=== PATIENT | female | born 1990 | race Caucasian/White ===

== ENCOUNTER 2016-11-18 20:04 | Emergency (ER) | payer BC, OTHER ==
[~2016-11-18] VITALS: Ht 165.1 cm; Wt 63.5 kg
[2016-11-18] MEDS ORDERED: ONDANSETRON PF 4 MG/2 ML VIAL. IV ONE (20:45)
[2016-11-18] MEDS ORDERED: DIPHTH,PERTUSS(ACELL),TET TOX 0.5 ML DISP.SYRIN. VAX IM ONE (20:45)
[2016-11-18] MEDS ORDERED: KETOROLAC 15 MG/ML VIAL. IV ONE (20:45)
[2016-11-18] MEDS ORDERED: KETOROLAC 60 MG/2 ML INJ. IM ONE (21:30)
[2016-11-18] MEDS ORDERED: ONDANSETRON ODT 4 MG TAB.RAPDIS. PO ONE (21:30)
--- NOTE | 2016-11-18 21:59 | RAD ---
CT Head W/O Contrast: History: FALL FROM STANDING NO LOC ABRASIONS TO FACE NOSE PAIN NO PREV/CONTRAST UNABLE TO REMOVE EARRINGS Comparison: none Axial images were obtained without contrast. The nevarez and white matter appears normal and symmetrical for the patients age. There is no mass effect, extraaxial fluid collections or hydrocephalus. There is no gross bleed. There is no focal loss of nevarez-white matter distinction to suggest acute ischemia, i.e. stroke. Impression: No acute findings. End impression CT maxillofacial without contrast History: sinus infection Axial helical images of the face were obtained without contrast. Axial, sagittal and coronal reconstruction was performed. The nasal septum is mildly deviated to the right. The ostiomeatal complexes are narrow but patent. The paranasal sinuses are clear. There is multiple displaced fractures through the nasal ala bilaterally. The orbits appear normal. Impression: Acute bilateral nasal bone fractures. End impression CT C-Spine without contrast: Clinical History: FALL FROM STANDING NO LOC ABRASIONS TO FACE NOSE PAIN NO PREV/CONTRAST UNABLE TO REMOVE EARRINGS Technique: Axial helical images of the cervical spine were obtained without contrast, axial coronal and sagittal reconstruction was performed. Findings: There is no loss of vertebral body stature. There is no prevertebral soft tissue swelling. The vertebral bodies are well aligned. The C1-C2 relationship is normal. The visualized osseous structures appear normal. There is straightening of the normal cervical lordosis which can be positional or can be secondary to muscle spasm. Evaluation of the central canal is limited without contrast. Impression: No acute findings. Clinical correlation suggested. PQRS Compliance Statement: One or more of the following individualized dose reduction techniques were utilized for this examination: 1. Automated exposure control 2. Adjustment of the mA and/or kV according to patient size 3. Use of iterative reconstruction technique Electronically signed by: Cade Butler III, MD (11/18/2016 9:56 PM) [facility]
[2016-11-18] MEDS ORDERED: IBUP-1007 PO (22:53)
[2016-11-18] MEDS ORDERED: HYDR-971 PO (22:53)
[2016-11-18] MEDS ORDERED: CEPH-264 PO (22:53)
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
[2016-11-18 23:31] VITALS: BP 135/74
== END 2016-11-18 23:32 | disposition home or self-care (01) ==
LOC: ER 20:04
DX: S02.2XXA Fracture of nasal bones, initial encounter for closed fracture (principal); S00.81XA Abrasion of other part of head, initial encounter; S09.90XA Unspecified injury of head, initial encounter; F10.129 Alcohol abuse with intoxication, unspecified; W01.198A Fall on same level from slipping, tripping and stumbling with subsequent striking against other object, initial encounter; Y93.39 Activity, other involving climbing, rappelling and jumping off; Y92.89 Other specified places as the place of occurrence of the external cause; Y99.8 Other external cause status
CPT/HCPCS: 70450; 70486; 72125; 81025; 90471; 90715; 96372; 99284; J1885; Q0162

== ENCOUNTER 2017-01-07 08:00 | Emergency (ER) | payer OTHER ==
[~2017-01-07] VITALS: Ht 160 cm; Wt 63.5 kg
[~2017-01-07 08:00] MED LIST: CEPH-264 PO; HYDR-971 PO; IBUP-1007 PO
[2017-01-07 08:27] LABS: BILIRUBIN,URINE NEGATIVE (NEG); GLUCOSE,URINE 100 mg/dL (NEG); NITRITE,URINE NEGATIVE (NEG); PROTEIN,URINE 100 mg/dL (NEG-TRACE)
[2017-01-07 08:29] LABS: NEG OBC UR NEG; POS OBC UR POS
[2017-01-07 08:45] LABS: BASO % 0 % (0-3); EOS % 0 % (0-3); HEMATOCRIT 36.7 % (36.0-47.0); HEMOGLOBIN 12.3 g/dL (12.0-15.5); LYMPH # 1.5 x10^3/uL (1.0-4.8); LYMPH % 15 % (24-48); MEAN CORPUSCULAR HEMOGLOBIN 29 pg (25-35); MEAN CORPUSCULAR HGB CONC 34 g/dL (31-37); MEAN CORPUSCULAR VOLUME 87 fL (79-100); MONO % 8 % (0-9); NEUT % 77 % (31-73); PLATELET COUNT 292 x10^3/uL (140-400); WHITE BLOOD COUNT 9.9 x10^3/uL (4.0-11.0)
[2017-01-07 08:54] LABS: CALCIUM 9.2 mg/dL (8.5-10.1); CREATININE 0.7 mg/dL (0.6-1.0); GFR 101.1; POTASSIUM 3.1 mmol/L (3.5-5.1)
[2017-01-07 08:54] LABS: RBC,URINE 0 /HPF (0-2)
[2017-01-07 08:55] LABS: BACTERIA,URINE FEW /HPF (0-FEW); SQUAMOUS EPITHELIAL CELL,UR MANY /LPF
[2017-01-07 09:01] LABS: ALBUMIN 4.4 g/dL (3.4-5.0); TOTAL BILIRUBIN 0.4 mg/dL (0.2-1.0); TOTAL PROTEIN 8.6 g/dL (6.4-8.2)
--- NOTE | 2017-01-07 09:26 | ED.ADGEN ---
Past Medical History Past Medical History: No Pertinent History Past Surgical History: Other Additional Past Surgical Histo: WISDOM TEETH, BLADDER Alcohol Use: Occasionally Drug Use: None Adult General Chief Complaint Chief Complaint: NAUSEA/VOMITING/DIARRHA HPI HPI Patient is a 26 year old woman, with no significant past no history, who presents to the emergency department with complaint of nausea, vomiting, and epigastric abdominal pain for the past 3 days. 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 She states that she did have a small bowel yesterday, but denies any diarrhea, denies any blood in her emesis or stool. Denies any urinary complaints. She states that she's been vomiting "nonstop", states that it is food and fluid, and also bringing up mucus. No coughing, states that she is having chest pain after multiple doses of vomiting. Denies any weakness, numbness or tingling, any swelling extremities, any rashes, any headache, any body aches. States that she is experiencing subjective fevers and chills, has not taken any antibiotics, and is afebrile upon arrival to the emergency department. States she tried to take Pepto-Bismol this morning but vomited that back up. Review of Systems Review of Systems Constitutional: Denies fever or chills. [] Eyes: Denies change in visual acuity. [] HENT: Denies nasal congestion or sore throat. [] Respiratory: Denies cough or shortness of breath. [] Cardiovascular: Denies chest pain or edema. [] GI: Epigastric abdominal pain, nausea, vomiting, no bloody stools or diarrhea. : Denies dysuria. [] Musculoskeletal: Denies back pain or joint pain. [] Integument: Denies rash. [] Neurologic: Denies headache, focal weakness or sensory changes. [] Endocrine: Denies polyuria or polydipsia. [] Lymphatic: Denies swollen glands. [] Psychiatric: Denies depression or anxiety. [] Current Medications Current Medications Current Medications Medications (Trade) Dose Ordered Sig/Chen Start Time Stop Time Status Last Admin Dose Admin Ketorolac Tromethamine (Toradol) 10 mg 1X ONCE 01/07/17 09:45 01/07/17 09:46 DC 01/07/17 09:40 10 MG Multi-Ingredient Mouthwash/Gargle (Gi Cocktail Single Dose) 15 ml 1X ONCE 01/07/17 09:45 01/07/17 09:46 DC 01/07/17 09:39 15 ML Ondansetron HCl (Zofran) 4 mg 1X ONCE 01/07/17 10:30 01/07/17 10:31 DC 01/07/17 10:03 4 MG Potassium Chloride (KCl Oral Soln) 40 meq 1X ONCE 01/07/17 09:45 01/07/17 09:46 DC 01/07/17 09:39 40 MEQ Sodium Chloride 1,000 ml @ 1,000 mls/hr 1X ONCE 01/07/17 10:45 01/07/17 11:44 DC 01/07/17 10:56 1,000 MLS/HR Allergies Allergies Allergies Coded Allergies Type Severity Reaction Last Updated Verified No Known Drug Allergies 06/01/14 No Physical Exam Physical Exam Constitutional: Well developed, well nourished, no acute distress, non-toxic appearance. [] HENT: Normocephalic, atraumatic, bilateral external ears normal, oropharynx moist, no oral exudates, nose normal. [] Eyes: PERRLA, EOMI, conjunctiva normal, no discharge. [] Neck: Normal range of motion, no tenderness, supple, no stridor. [] Cardiovascular:Heart rate regular rhythm, no murmur, S1, S2, no rubs or gallops. [] Lungs & Thorax: Bilateral breath sounds clear to auscultation, no wheezing, rhonchi, rales. No chest wall crepitus or tenderness. [] Abdomen: Bowel sounds normal, soft, mild tenderness to palpation in the epigastric region, and throughout the abdomen, no rebound, rigidity, no guarding , no masses, no pulsatile masses. [] Skin: Warm, dry, no erythema, no rash. [] Back: No tenderness, no CVA tenderness. [] Extremities: No tenderness, no cyanosis, no clubbing, ROM intact, no edema. [] Neurologic: Alert and oriented X 3, normal motor function, normal sensory function, no focal deficits noted. [] Psychologic: Affect normal, judgement normal, mood normal. [] Current Patient Data Vital Signs Vital Signs Date Time Temp Pulse Resp B/P (MAP) Pulse Ox O2 Delivery O2 Flow Rate FiO2 01/07/17 11:40 95 150/90 (110) 96 Room Air 01/07/17 08:05 98.9 20 98.9 Lab Values Laboratory Tests Test 01/07/17 08:11 01/07/17 08:12 01/07/17 08:30 Urine Collection Type Unknown Urine Color Yellow Urine Clarity Clear Urine pH 8.0 Urine Specific [place] >=1.030 Urine Protein 100 mg/dL (NEG-TRACE) Urine Glucose (UA) 100 mg/dL (NEG) Urine Ketones (Stick) 15 mg/dL (NEG) Urine Blood Negative (NEG) Urine Nitrite Negative (NEG) Urine Bilirubin Negative (NEG) Urine Urobilinogen Dipstick 1.0 mg/dL (0.2 mg/dL) Urine Leukocyte Esterase Small (NEG) Urine RBC 0 /HPF (0-2) Urine WBC 1-4 /HPF (0-4) Urine Squamous Epithelial Cells Many /LPF Urine Bacteria Few /HPF (0-FEW) Urine Mucus Marked /LPF Urine Test Negative (NEG) POC Urine HCG, Qualitative Hcg negative (Negative) White Blood Count 9.9 x10^3/uL (4.0-11.0) Red Blood Count 4.20 x10^6/uL (3.50-5.40) Hemoglobin 12.3 g/dL (12.0-15.5) Hematocrit 36.7 % (36.0-47.0) Mean Corpuscular Volume 87 fL (79-100) Mean Corpuscular Hemoglobin 29 pg (25-35) Mean Corpuscular Hemoglobin Concent 34 g/dL (31-37) Red Cell Distribution Width 15.0 % (11.5-14.5) H Platelet Count 292 x10^3/uL (140-400) Neutrophils (%) (Auto) 77 % (31-73) H Lymphocytes (%) (Auto) 15 % (24-48) L Monocytes (%) (Auto) 8 % (0-9) Eosinophils (%) (Auto) 0 % (0-3) Basophils (%) (Auto) 0 % (0-3) Neutrophils # (Auto) 7.6 x10^3uL (1.8-7.7) Lymphocytes # (Auto) 1.5 x10^3/uL (1.0-4.8) Monocytes # (Auto) 0.8 x10^3/uL (0.0-1.1) Eosinophils # (Auto) 0.0 x10^3/uL (0.0-0.7) Basophils # (Auto) 0.0 x10^3/uL (0.0-0.2) Sodium Level 137 mmol/L (136-145) Potassium Level 3.1 mmol/L (3.5-5.1) L Chloride Level 102 mmol/L (98-107) Carbon Dioxide Level 25 mmol/L (21-32) Anion Gap 10 (6-14) Blood Urea Nitrogen 17 mg/dL (7-20) Creatinine 0.7 mg/dL (0.6-1.0) Estimated GFR (Cockcroft-Gault) 101.1 BUN/Creatinine Ratio 24 (6-20) H Glucose Level 115 mg/dL (70-99) H Calcium Level 9.2 mg/dL (8.5-10.1) Total Bilirubin 0.4 mg/dL (0.2-1.0) Aspartate Amino Transferase (AST) 33 U/L (15-37) Alanine Aminotransferase (ALT) 52 U/L (14-59) Alkaline Phosphatase 44 U/L (46-116) L Total Protein 8.6 g/dL (6.4-8.2) H Albumin 4.4 g/dL (3.4-5.0) Albumin/Globulin Ratio 1.0 (1.0-1.7) Lipase 109 U/L (73-393) Laboratory Tests 01/07/17 08:30 Laboratory Tests 01/07/17 08:30 EKG EKG ECG: Rhythm strip: Heart rate 76 bpm, no ectopy, as interpreted by me.[] Radiology/Procedures Radiology/Procedures [][facility] [address] [place] [address] IMAGING REPORT Signed PATIENT: WHIT RUSSO ACCOUNT: [id number] : 1990 LOCATION: ER AGE: 26 SEX: F EXAM STATUS: REG ER ORD. PHYSICIAN: FANTA REDMAN DO REASON: abd pain/n/v PROCEDURE: ACUTE ABDOMEN SERIES ACUTE ABDOMEN SERIES History: abd pain/n/v x2 days. Comparison: None. Findings: Frontal chest and supine and upright views of the abdomen. Cardiomediastinal silhouette is normal. There is no pleural effusion or pneumothorax. The lungs are clear. No pneumoperitoneum is identified. No air-fluid levels on the upright image. No dilated loops of bowel are seen. There is minimal bowel gas decreasing sensitivity. No obvious organomegaly. Tiny flecks of hyperdensity are seen in the pelvis and in the right lower abdomen, presumably in bowel. Correlate to recent ingestions such as Pepto-Bismol. IMPRESSION: 1. No acute cardiopulmonary process. 2. Nonobstructive bowel gas pattern. DICTATED and SIGNED BY: IKE BOLDEN MD DATE: 01/07/17 0952 CC: FANTA REDMAN DO; ROCK MIGUEL DO ~ Course & Med Decision Making Course & Med Decision Making Pertinent Labs and Imaging studies reviewed. (See chart for details) Patient noted to have a potassium of 3.1, with a small amount ketones in the urine. Patient received antiemetics, analgesia with Toradol, IV fluids. She had no further emesis in the ED. Upon reevaluation, patient states that she is feeling much better at this time, laboratory studies reviewed, she did tolerate oral potassium, and a GI cocktail. Acute on a series not reveal a concerning findings, patient's examination history is consistent with a likely viral syndrome. Did discuss this with patient, importance of pushing fluids, use of Bentyl and Zofran. 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 Work note was provided, along prescription for Zofran and Bentyl as stated, and dietary instructions. Patient is also provided detailed instructions and concerning symptoms that prompt return. Patient voiced understanding and agreement plan as stated, discharged home in stable condition with plan as above. Dragon Disclaimer Dragon Disclaimer This electronic medical record was generated, in whole or in part, using a voice recognition dictation system. Departure Impression: Primary Impression: Nausea and vomiting Disposition: 01 HOME, SELF-CARE Condition: IMPROVED Scripts Ondansetron Hcl (ZOFRAN) 4 Mg Tablet 1 TAB PO PRN Q6-8HRS Y for NAUSEA, #12 TAB Prov: FANTA REDMAN DO 01/07/17 Dicyclomine Hcl (BENTYL) 10 Mg Capsule 10 MG PO PRN QID Y for ABDOMINAL CRAMPING, #12 TAB Prov: FANTA REDMAN DO 01/07/17 FANTA REDMAN DO Jan 07, 2017 09:26
[2017-01-07] MEDS ORDERED: IV NORMAL SALINE 1000ML BAG 1,000 ML IV ONE ×2 (09:30→10:45)
[2017-01-07] MEDS ORDERED: KETOROLAC 15 MG/ML VIAL. IV ONE (09:45)
[2017-01-07] MEDS ORDERED: LIDO:MAALOX:DONNATAL 1:1:1 15 ML SINGLE DOSE SWSW ONE (09:45)
[2017-01-07] MEDS ORDERED: ONDANSETRON PF 4 MG/2 ML VIAL. IV ONE ×2 (09:45→10:30)
[2017-01-07] MEDS ORDERED: POTASSIUM CHLORIDE 20 MEQ/15 ML ORAL LIQUID. PO ONE (09:45)
--- NOTE | 2017-01-07 10:02 | RAD ---
ACUTE ABDOMEN SERIES History: abd pain/n/v x2 days. Comparison: None. Findings: Frontal chest and supine and upright views of the abdomen. Cardiomediastinal silhouette is normal. There is no pleural effusion or pneumothorax. The lungs are clear. No pneumoperitoneum is identified. No air-fluid levels on the upright image. No dilated loops of bowel are seen. There is minimal bowel gas decreasing sensitivity. No obvious organomegaly. Tiny flecks of hyperdensity are seen in the pelvis and in the right lower abdomen, presumably in bowel. Correlate to recent ingestions such as Pepto-Bismol. IMPRESSION: 1. No acute cardiopulmonary process. 2. Nonobstructive bowel gas pattern.
[2017-01-07 11:40] VITALS: BP 150/90
[2017-01-07] MEDS ORDERED: ONDA4TAB7 PO (12:08)
[2017-01-07] MEDS ORDERED: DICY10CA53 PO (12:08)
== END 2017-01-07 12:30 | disposition home or self-care (01) ==
LOC: ER 08:00
DX: R11.2 Nausea with vomiting, unspecified (principal); R10.13 Epigastric pain; R50.9 Fever, unspecified
CPT/HCPCS: 36415; 74022; 80053; 81001; 81025; 83690; 84703; 85025; 96361; 96374; 96375; 99285; J1885; J2405; J7030

== ENCOUNTER 2017-02-21 11:10 | Emergency (ER) | payer OTHER ==
[2017-02-21] MEDS ORDERED: ONDANSETRON PF 4 MG/2 ML VIAL. (11:29)
[2017-02-21] MEDS: ONDANSETRON PF 4 MG/2 ML VIAL. IV (11:31)
[2017-02-21] MEDS: IV NORMAL SALINE 1000ML BAG 1,000 ML IV ×2 (11:31→14:13)
[2017-02-21 11:36] LABS: ADD MAN DIFF? NO
[2017-02-21 11:41] LABS: BASO % 0 % (0-3); EOS % 0 % (0-3); HEMATOCRIT 40.6 % (36.0-47.0); HEMOGLOBIN 13.6 g/dL (12.0-15.5); LYMPH # 1.4 x10^3/uL (1.0-4.8); LYMPH % 13 % (24-48); MEAN CORPUSCULAR HEMOGLOBIN 29 pg (25-35); MEAN CORPUSCULAR HGB CONC 34 g/dL (31-37); MEAN CORPUSCULAR VOLUME 88 fL (79-100); MONO # 0.8 x10^3/uL (0.0-1.1); MONO % 8 % (0-9); NEUT # 8.2 x10^3uL (1.8-7.7); NEUT % 79 % (31-73); PLATELET COUNT 289 x10^3/uL (140-400); RED BLOOD COUNT 4.63 x10^6/uL (3.50-5.40); RED CELL DISTRIBUTION WIDTH 14.2 % (11.5-14.5); WHITE BLOOD COUNT 10.4 x10^3/uL (4.0-11.0)
[2017-02-21 11:47] LABS: BLOOD UREA NITROGEN 23 mg/dL (7-20); BUN/CREATININE RATIO 29 (6-20); CALCIUM 9.7 mg/dL (8.5-10.1); CARBON DIOXIDE 30 mmol/L (21-32); CHLORIDE 98 mmol/L (98-107); CREATININE 0.8 mg/dL (0.6-1.0); GLUCOSE 108 mg/dL (70-99); POTASSIUM 3.1 mmol/L (3.5-5.1); SODIUM 140 mmol/L (136-145)
[2017-02-21 11:48] LABS: ANION GAP 12 (6-14)
[2017-02-21 11:54] LABS: ALBUMIN 4.4 g/dL (3.4-5.0); ALK PHOS 43 U/L (46-116); ALT (SGPT) 73 U/L (14-59); AST (SGOT) 51 U/L (15-37); LIPASE 137 U/L (73-393); TOTAL BILIRUBIN 0.7 mg/dL (0.2-1.0); TOTAL PROTEIN 8.9 g/dL (6.4-8.2)
[2017-02-21 13:59] LABS: URINE HCG POC HCG NEGATIVE (Negative)
[2017-02-21 14:04] LABS: BILIRUBIN,URINE SMALL (NEG); CLARITY,URINE CLEAR; COLOR,URINE AMBER; GLUCOSE,URINE NEGATIVE (NEG); NITRITE,URINE POSITIVE (NEG); PH,URINE 6.5; PROTEIN,URINE 100 mg/dL (NEG-TRACE)
[2017-02-21 14:14] LABS: BACTERIA,URINE MANY /HPF (0-FEW); RBC,URINE OCC /HPF (0-2); SQUAMOUS EPITHELIAL CELL,UR MOD /LPF; WBC,URINE >40 /HPF (0-4)
[2017-02-21] MEDS: IOHEXOL 300 MG/ML 100ML VIAL. IV (14:21)
[2017-02-21] MEDS ORDERED: CONTRAST GIVEN MC (14:30)
[2017-02-21] MEDS: POTASSIUM CHLORIDE 10 MEQ in IV NORMAL SALINE 100ML 100 ML IV (14:34)
[2017-02-21] MEDS: POTASSIUM CHLORIDE 10MEQ 100 ML IV (15:30)
== END 2017-02-21 15:55 | disposition home or self-care (01) ==
LOC: ER 11:10
DX: N39.0 Urinary tract infection, site not specified (principal)
CPT/HCPCS: 36415; 74177; 80053; 81001; 81025; 83690; 85025; 87086; 87186; 96361; 96365; 96375; 99285-25; J2405; J7030; Q9967

== ENCOUNTER 2020-02-09 20:57 | Emergency (ER) | payer BC, OTHER ==
[~2020-02-09] VITALS: Ht 165.1 cm; Wt 75.0 kg
[~2020-02-09 20:57] MED LIST changes: +DICY10CA53 PO; +HYDR-3164 PO; -HYDR-971 PO; +NITR100C62 PO; +ONDA4TAB10 SL; +ONDA4TAB7 PO; +POTA10TA12 PO
--- NOTE | 2020-02-09 21:19 | PHYS DOC ---
Past Medical History Past Medical History: No Pertinent History Past Surgical History: Other Additional Past Surgical Histo: WISDOM TEETH, BLADDER Smoking Status: Never Smoker Alcohol Use: Occasionally Drug Use: None General Adult EDM: Chief Complaint: NAUSEA/VOMITING/DIARRHA HPI: HPI: Patient is a 29 year old female who presented to ER for evaluation of nausea vomiting and abdominal pain since earlier today. Patient denies any fever, no cough, no trouble breathing. Patient denies any diarrhea. Patient last bowel movement was 3 days ago. Patient had COVID-19 infection 2 months ago. Patient denies any vaginal bleeding or discharge. Review of Systems: Review of Systems: Constitutional: Denies fever or chills. [] Eyes: Denies change in visual acuity. [] HENT: Denies nasal congestion or sore throat. [] Respiratory: Denies cough or shortness of breath. [] Cardiovascular: Denies chest pain or edema. [] GI: Positive for abdominal pain, nausea vomiting, no diarrhea. : Denies dysuria. [] Musculoskeletal: Denies back pain or joint pain. [] Integument: Denies rash. [] Neurologic: Denies headache, focal weakness or sensory changes. [] Endocrine: Denies polyuria or polydipsia. [] Lymphatic: Denies swollen glands. [] Psychiatric: Denies depression or anxiety. [] Heart Score: Risk Factors: Risk Factors: DM, Current or recent (<one month) smoker, HTN, HLP, family history of CAD, obesity. Risk Scores: Score 0 - 3: 2.5% MACE over next 6 weeks - Discharge Home Score 4 - 6: 20.3% MACE over next 6 weeks - Admit for Clinical Observation Score 7 - 10: 72.7% MACE over next 6 weeks - Early Invasive Strategies Allergies: Allergies: Allergies Coded Allergies Type Severity Reaction Last Updated Verified No Known Drug Allergies 06/01/14 No Physical Exam: PE: Constitutional: Well developed, well nourished, no acute distress, non-toxic appearance. [] HENT: Normocephalic, atraumatic, bilateral external ears normal, oropharynx moist, no oral exudates, nose normal. [] Eyes: PERRLA, EOMI, conjunctiva normal, no discharge. [] Neck: Normal range of motion, no tenderness, supple, no stridor. [] Cardiovascular:Heart rate regular rhythm, no murmur [] Lungs & Thorax: Bilateral breath sounds clear to auscultation [] Abdomen: Bowel sounds normal, soft, THERE IS tenderness TO PALPATION IN PERIUMBILICAL AREA, no masses, no pulsatile masses. [] Skin: Warm, dry, no erythema, no rash. [] Back: No tenderness, no CVA tenderness. [] Extremities: No tenderness, no cyanosis, no clubbing, ROM intact, no edema. [] Neurologic: Alert and oriented X 3, normal motor function, normal sensory function, no focal deficits noted. [] Psychologic: Affect normal, judgement normal, mood normal. [] Current Patient Data: Labs: Laboratory Tests Test 02/09/20 21:20 02/09/20 21:28 White Blood Count 19.1 x10^3/uL Red Blood Count 4.63 x10^6/uL Hemoglobin 14.3 g/dL Hematocrit 41.6 % Mean Corpuscular Volume 90 fL Mean Corpuscular Hemoglobin 31 pg Mean Corpuscular Hemoglobin Concent 35 g/dL Red Cell Distribution Width 13.7 % Platelet Count 404 x10^3/uL Neutrophils (%) (Auto) 86 % Lymphocytes (%) (Auto) 7 % Monocytes (%) (Auto) 7 % Eosinophils (%) (Auto) 0 % Basophils (%) (Auto) 0 % Neutrophils # (Auto) 16.4 x10^3/uL Lymphocytes # (Auto) 1.3 x10^3/uL Monocytes # (Auto) 1.4 x10^3/uL Eosinophils # (Auto) 0.0 x10^3/uL Basophils # (Auto) 0.0 x10^3/uL Segmented Neutrophils % 84 % Band Neutrophils % 3 % Lymphocytes % 10 % Monocytes % 3 % Platelet Estimate Adequate Sodium Level 142 mmol/L Potassium Level 3.5 mmol/L Chloride Level 101 mmol/L Carbon Dioxide Level 25 mmol/L Anion Gap 16 Blood Urea Nitrogen 20 mg/dL Creatinine 1.1 mg/dL Estimated GFR (Cockcroft-Gault) 58.7 BUN/Creatinine Ratio 18 Glucose Level 146 mg/dL Calcium Level 10.8 mg/dL Total Bilirubin 0.5 mg/dL Aspartate Amino Transf (AST/SGOT) 26 U/L Alanine Aminotransferase (ALT/SGPT) 41 U/L Alkaline Phosphatase 65 U/L Total Protein 9.3 g/dL Albumin 4.4 g/dL Albumin/Globulin Ratio 0.9 Lipase 74 U/L Bedside Urine HCG, Qualitative Hcg negative Current Medications Medications (Trade) Dose Ordered Sig/Chen Route PRN Reason Start Time Stop Time Status Last Admin Dose Admin Sodium Chloride 1,000 ml @ 1,000 mls/hr Q1H IV 02/09/20 22:00 02/09/20 22:59 DC 02/09/20 21:28 Ondansetron HCl (Zofran) 4 mg 1X ONCE IVP 02/09/20 22:00 02/09/20 22:01 DC 02/09/20 21:28 Iohexol (Omnipaque 300 Mg/ml) 60 ml 1X ONCE IV 02/09/20 22:30 02/09/20 22:31 DC 02/09/20 22:29 Info (CONTRAST GIVEN -- Rx MONITORING) 1 each PRN DAILY PRN MC SEE COMMENTS 02/09/20 22:15 02/11/20 22:14 Sodium Chloride 1,000 ml @ 1,000 mls/hr 1X ONCE IV 02/09/20 23:00 02/09/20 23:59 02/09/20 22:40 Ceftriaxone Sodium (Rocephin) 1 gm 1X ONCE IVP 02/09/20 23:30 02/09/20 23:31 EKG: EKG: [] Radiology/Procedures: Radiology/Procedures: [][facility] [address] [place] [address] IMAGING REPORT Signed PATIENT: WHIT RUSSO ACCOUNT: [id number] : 1990 LOCATION: ER AGE: 29 SEX: F EXAM STATUS: REG ER ORD. PHYSICIAN: DANNY AWLTON DO REASON: abdominal pain PROCEDURE: CT ABD PELV W/ IV CONTRST ONLY Exam: CT of abdomen and pelvis with contrast INDICATION: Abdominal pain TECHNIQUE: Sequential axial images through the abdomen and pelvis obtained following the administration of 60 mL of Omni 300 IV contrast. Sagittal and coronal reformatted images were reconstructed from the axial data and reviewed. Comparisons: 02/21/2017 FINDINGS: Heart size is normal. No pericardial effusion. Visualized lung bases are clear. No pleural effusion. Liver, spleen, pancreas, gallbladder and adrenals are unremarkable. No perinephric inflammation or hydronephrosis. No renal or ureteral calculi are identified. Bladder is decompressed not well evaluated. Uterus is nonenlarged. No abnormal adnexal mass. Large and small bowel are unremarkable. Appendix is is not identified. No free intra-abdominal air or fluid. No obstruction. Abdominal aorta has a normal course and caliber. Abdominal vasculature is patent. No enlarged abdominal lymph nodes are identified. No suspicious osseous lesions or acute fractures. IMPRESSION: No acute process identified within the abdomen or pelvis. Exposure: One or more of the following in the visualized dose reduction techniques were utilized for this examination: 1. Automated exposure control 2. Adjustment of the MA and/or KV according to patient size 3. Use of iterative of reconstructive technique Electronically signed by: Jonathan Gonzales MD (02/09/2020 10:35 PM) [facility] DICTATED and SIGNED BY: JONATHAN GONZALES MD DATE: 02/09/20 [id number] 0 Course & Med Decision Making: Course & Med Decision Making Pertinent Labs and Imaging studies reviewed. (See chart for details) Patient is a 29-year-old female who presented to ER for low abdominal pain associate with nausea vomiting. Patient white blood cell count elevated, it was suspected that she may have appendicitis. CT scan of the abdomen pelvic did not show the appendix however there was no inflammation or acute problem in the abdomen ,pelvic area. Patient feels much better now, she is thirsty and hungry. This physician discussed with patient that she may need to be admitted to hospital for observation however patient requested to be discharged home, patient stated that if she feels any worse she will come right back. I examined her abdomen area again, there is no peritonitis, no rebound tenderness, no guarding. Dragon Disclaimer: Dragon Disclaimer: This electronic medical record was generated, in whole or in part, using a voice recognition dictation system. Departure Departure Impression: Primary Impression: Abdominal pain Additional Impression: Nausea & vomiting Disposition: 01 DC HOME SELF CARE/HOMELESS Condition: IMPROVED Referrals: ROCK MIGUEL DO (PCP) Please call your doctor for follow up in 2 days. Patient Instructions: Abdominal Pain Additional Instructions: Thank you for visiting our Emergency Department. We appreciate you trusting us with your care. If any additional problems come up don't hesitate to return to visit us. Please follow up with your primary care provider so they can plan additional care if needed and know about the problem that you had. If symptoms worsen come back to the Emergency Department. Any concerning symptoms that start such as chest pain, shortness of air, weakness or numbness on one side of the body, running high fevers or any other concerning symptoms return to the ER. DANNY WALTON DO Feb 09, 2020 21:18
[2020-02-09 21:45] LABS: BASO % 0 % (0-3); EOS % 0 % (0-3); HEMATOCRIT 41.6 % (36.0-47.0); HEMOGLOBIN 14.3 g/dL (12.0-15.5); LYMPH # 1.3 x10^3/uL (1.0-4.8); LYMPH % 7 % (24-48); MEAN CORPUSCULAR HEMOGLOBIN 31 pg (25-35); MEAN CORPUSCULAR HGB CONC 35 g/dL (31-37); MEAN CORPUSCULAR VOLUME 90 fL (79-100); MONO # 1.4 x10^3/uL (0.0-1.1); MONO % 7 % (0-9); NEUT # 16.4 x10^3/uL (1.8-7.7); NEUT % 86 % (31-73); PLATELET COUNT 404 x10^3/uL (140-400); RED BLOOD COUNT 4.63 x10^6/uL (3.50-5.40); RED CELL DISTRIBUTION WIDTH 13.7 % (11.5-14.5); WHITE BLOOD COUNT 19.1 x10^3/uL (4.0-11.0)
[2020-02-09 21:50] LABS: CALCIUM 10.8 mg/dL (8.5-10.1); CREATININE 1.1 mg/dL (0.6-1.0); GFR 58.7; POTASSIUM 3.5 mmol/L (3.5-5.1)
[2020-02-09 21:55] LABS: ALBUMIN 4.4 g/dL (3.4-5.0); ALBUMIN/GLOBULIN RATIO 0.9 (1.0-1.7); TOTAL BILIRUBIN 0.5 mg/dL (0.2-1.0); TOTAL PROTEIN 9.3 g/dL (6.4-8.2)
[2020-02-09] MEDS ORDERED: IV NORMAL SALINE 1000ML BAG 1,000 ML IV SCH (22:00)
[2020-02-09] MEDS ORDERED: ONDANSETRON PF 4 MG/2 ML VIAL. IVP ONE (22:00)
[2020-02-09] MEDS ORDERED: CONTRAST GIVEN. MC PRN (22:15)
[2020-02-09 22:23] LABS: % BANDS 3 % (0-9); % LYMPHS 10 % (24-48); % MONOS 3 % (0-10); % SEGS 84 % (35-66)
[2020-02-09 22:24] LABS: PLT ESTIMATE ADEQUATE (ADEQUATE)
[2020-02-09] MEDS ORDERED: IOHEXOL 300 MG/ML 100ML VIAL. IV ONE (22:30)
--- NOTE | 2020-02-09 22:38 | RAD ---
Exam: CT of abdomen and pelvis with contrast INDICATION: Abdominal pain TECHNIQUE: Sequential axial images through the abdomen and pelvis obtained following the administrati on of 60 mL of Omni 300 IV contrast. Sagittal and coronal reformatted images were reconstructed from the axial data and reviewed. Comparisons: 02/21/2017 FINDINGS: Heart size is normal. No pericardial effusion. Visualized lung bases are clear. No pleural effusion. Liver, spleen, pancreas, gallbladder and adrenals are unremarkable. No perinephric inflammation or hydronephrosis. No renal or ureteral calculi are identified. Bladder is decompressed not well evaluated. Uterus is nonenlarged. No abnormal adnexal mass. Large and small bowel are unremarkable. Appendix is is not identified. No free intra-abdominal air or fluid. No obstruction. Abdominal aorta has a normal course and caliber. Abdominal vasculature is patent. No enlarged abdominal lymph nodes are identified. No suspicious osseous lesions or acute fractures. IMPRESSION: No acute process identified within the abdomen or pelvis. Exposure: One or more of the following in the visualized dose reduction techniques were utilized for this examination: 1. Automated exposure control 2. Adjustment of the MA and/or KV according to patient size 3. Use of iterative of reconstructive technique Electronically signed by: Jonathan Berumen MD (02/09/2020 10:35 PM) [facility]
[2020-02-09] MEDS ORDERED: IV NORMAL SALINE 1000ML BAG 1,000 ML IV ONE (23:00)
[2020-02-09 23:07] VITALS: BP 180/107
[2020-02-09] MEDS ORDERED: cefTRIAXone IV Push 1 GM VIAL. IVP ONE (23:30)
[2020-02-09 23:37] LABS: BILIRUBIN,URINE NEGATIVE (NEG); CLARITY,URINE CLEAR; COLOR,URINE YELLOW; NITRITE,URINE NEGATIVE (NEG); PROTEIN,URINE 100 mg/dL (NEG-TRACE); UROBILINOGEN,URINE 0.2 mg/dL (0.2 mg/dL)
[2020-02-09 23:44] LABS: BACTERIA,URINE 0 /HPF (0-FEW)
== END 2020-02-10 00:04 | disposition home or self-care (01) ==
LOC: ER 20:57
DX: R10.33 Periumbilical pain (principal); R11.2 Nausea with vomiting, unspecified
CPT/HCPCS: 36415; 74177; 80053; 81001; 81025; 83690; 85007; 85025; 96361; 96374; 96375; 99285; J0696; J2405; J7030; Q9967